=== PATIENT | male | born 1945 | race Caucasian/White ===

== ENCOUNTER 2018-04-19 06:22 | Day surgery (SDC) | payer OTHER ==
[~2018-04-19 06:22] MED LIST: Dextrose 5%-0.45% NaCl 1,000 ML IV SCH; Sodium Chloride 0.9% 10 ML Syringe FLUSH PRN
[2018-04-19] MEDS ORDERED: Midazolam 1 MG/ML 2 ML SDV IV ONE ×7 (06:23→07:43)
[2018-04-19] MEDS ORDERED: fentaNYL 100 MCG/2 ML SDV IV ONE ×3 (06:23→07:34)
[2018-04-19] MEDS ORDERED: Midazolam 1 MG/ML 2 ML SDV ONE (06:48)
[2018-04-19] MEDS ORDERED: fentaNYL 100 MCG/2 ML SDV ONE (06:48)
--- NOTE | 2018-04-19 08:38 | OR ---
DATE: 04/19/2018 PROCEDURES: Total colonoscopy, narrow-band imaging, and multiple cold snare polypectomies. INSTRUMENT USED: CF-H180 AL Olympus video colonoscope, Olympus distal detachable device. PREMEDICATIONS: Fentanyl 100 mcg intravenous, Versed 4 mg intravenous. Nasal O2 cannula. The procedure was done under pulse oximetry, BP recording, and quality assurance monitor chassis. INDICATION: Screening colonoscopic examination is done for detection of any polypoid lesions and removal. Endoscopic hemostasis therapy if needed. DESCRIPTION OF PROCEDURE: Initial perianal exam showed a pigmented skin lesion without bleeding from it. Rectal exam showed external and small internal hemorrhoids. The colonoscope was passed with ease. Numerous scattered diverticula were noted in the distal left colon along with deformity. The scope was passed with ease into the ileocecal area. Photographs were taken of the normal-appearing cecum, identified by landmarks of appendiceal orifice and double-bulged ileocecal folds. No bleeding was noted from any of the visualized areas at the commencement of the examination. There was some amount of fecal material, semisolid in consistency, that had to be aspirated. No stricture. No vascular ectasia. No large isolated ulcerations seen. No evidence of diffuse inflammatory bowel disease in the form of friability, contact bleeding, or ulcerations. Probing the proximal sides of folds and flexures, using adequate distention and clearing up the stool material, withdrawal of the scope was made. In the proximal descending colon, 3-mm sized benign-appearing polyp was noted. Photographs were taken. NBI views were obtained. Cold snare polypectomy was done. The tissue was retrieved and sent for histopathology. In the distal descending colon, just less than 1-cm sized pedunculated benign polyp was noted. NBI views were obtained. Photographs were taken. Cold snare polypectomy was done. The tissue was retrieved and sent for histopathology. No bleeding was noted from any of the visualized areas at the completion of examination. IMPRESSION: 1. External and internal hemorrhoids. 2. Diverticulosis. 3. Multiple colonic polyps. The patient tolerated the procedure well. MODL /[id number]
--- NOTE | 2018-04-19 14:14 | LETTER ---
04/19/2018 Lata Guardado NP [address] [address] RE: BENNIE RAMÍREZ Alina : 1945 Dear Ms. Guardado: Mr. Bennie Ramírez had colonoscopic examination done this morning and he tolerated the procedure well. I herewith send a copy of the endoscopy note and photographs for your review. He just has a skin lesion around the perianal area that requires Dermatology evaluation. Thank you. Sincerely, [facility] /[id number]
== END 2018-04-19 10:05 | disposition home or self-care (01) ==
LOC: DL.ENDO 06:22
PROVIDERS: ATTEND Internal Medicine Gastroenterology
DX: Z12.11 Encounter for screening for malignant neoplasm of colon (principal); D12.4 Benign neoplasm of descending colon; D12.5 Benign neoplasm of sigmoid colon; K57.30 Diverticulosis of large intestine without perforation or abscess without bleeding; K64.4 Residual hemorrhoidal skin tags; K64.8 Other hemorrhoids; I10 Essential (primary) hypertension; F17.210 Nicotine dependence, cigarettes, uncomplicated; E03.9 Hypothyroidism, unspecified; Z88.7 Allergy status to serum and vaccine
CPT/HCPCS: J2250; J3010; J7042

== ENCOUNTER 2020-11-26 10:14 | Emergency (ER) | payer OTHER ==
--- NOTE | 2020-11-26 11:09 | CT ---
PROCEDURE INFORMATION: Exam: CT Head Without Contrast Exam date and time: 11/26/2020 10:57 AM Age: 75 years old Clinical indication: Altered mental status/memory loss; Confusion or disorientation TECHNIQUE: Imaging protocol: Computed tomography of the head without contrast. Radiation optimization: All CT scans at this facility use at least one of these dose optimization techniques: automated exposure control; mA and/or kV adjustment per patient size (includes targeted exams where dose is matched to clinical indication); or iterative reconstruction. Other technique: STROKE PROTOCOL was implemented. COMPARISON: CT Head wo Cont 03/20/2020 1:29 PM FINDINGS: Brain: Again noted is patchy decreased attenuation in the periventricular white matter. Again noted is prominence of the sulci over both convexities. No acute intracranial changes. No hemorrhage or evidence of acute ischemia. No mass or mass effect. Cerebral ventricles: Again noted is mild prominence of the ventricular system secondary to volume loss. The ventricular system is otherwise without acute change. Bones/joints: Unremarkable. No acute fracture. Paranasal sinuses: Visualized sinuses are unremarkable. No fluid levels. Mastoid air cells: Visualized mastoid air cells are well aerated. Vasculature: Again noted is dolichoectasia of the left vertebral and basilar arteries. Soft tissues: Unremarkable. IMPRESSION: 1. No acute intracranial changes. 2. Chronic microvascular disease. 3. Generalized cerebral atrophy. ASSESSMENT: ASPECTS ([place] Stroke Program Early CT Score) is 10.
[2020-11-26 11:13] LABS: ANION GAP 16.5 mEq/L (7-13); CHLORIDE,CL 99 mmol/L (98-107); SODIUM,NA 137 mmol/L (136-145)
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
[2020-11-26] MEDS ORDERED: Iopamidol 612 MG/ML 100 ML Bottle IVPUSH ONE (11:52)
--- NOTE | 2020-11-26 12:30 | CT ---
PROCEDURE INFORMATION: Exam: CT Chest With Contrast; Diagnostic Exam date and time: 11/26/2020 11:32 AM Age: 75 years old Clinical indication: Abdominal pain; Generalized; Chest pain; Type not specified; Additional info: Abd pain, wbc 4.6 TECHNIQUE: Imaging protocol: Diagnostic computed tomography of the chest with contrast. Radiation optimization: All CT scans at this facility use at least one of these dose optimization techniques: automated exposure control; mA and/or kV adjustment per patient size (includes targeted exams where dose is matched to clinical indication); or iterative reconstruction. Contrast material: ISOVUE 300; Contrast volume: 100 ml; Contrast route: INTRAVENOUS (IV); COMPARISON: No relevant prior exams. FINDINGS: Lungs: 4 mm calcified nodule in the right upper lobe. No other pulmonary nodules or masses. No pulmonary infiltrate or consolidation. Mild emphysema. Pleural spaces: Unremarkable. No pneumothorax. No pleural effusion. Heart: Calcification of the coronary arteries. No cardiomegaly. Aorta: Unremarkable. No aortic aneurysm. Lymph nodes: Unremarkable. No enlarged lymph nodes. Bones/joints: Unremarkable. No acute fracture. Soft tissues: Unremarkable. IMPRESSION: 1. No acute cardiopulmonary disease. 2. Mild emphysema. PROCEDURE INFORMATION: Exam: CT Abdomen And Pelvis With Contrast Exam date and time: 11/26/2020 11:32 AM Age: 75 years old Clinical indication: Abdominal pain; Generalized; Chest pain; Type not specified; Additional info: Abd pain, wbc 4.6 TECHNIQUE: Imaging protocol: Computed tomography of the abdomen and pelvis with contrast. Radiation optimization: All CT scans at this facility use at least one of these dose optimization techniques: automated exposure control; mA and/or kV adjustment per patient size (includes targeted exams where dose is matched to clinical indication); or iterative reconstruction. Contrast material: ISOVUE 300; Contrast volume: 100 ml; Contrast route: INTRAVENOUS (IV); COMPARISON: No relevant prior exams. FINDINGS: Liver: Small hypodensities, measuring up to 1.2 cm. They are probably simple cysts. No other acute change or focal lesions. Gallbladder and bile ducts: 1.9 cm stone in the cystic duct. The gallbladder is distended. No other gallstones. Normal bile ducts. Pancreas: Diffuse atrophy. Otherwise, no acute change or focal lesion. Spleen: Normal. No splenomegaly. Adrenal glands: Normal. No mass. Kidneys and ureters: Several small simple right renal cortical cyst. Otherwise, unremarkable. No stones or hydronephrosis. Stomach and bowel: Unremarkable. No obstruction. No mucosal thickening. Appendix: Normal diameter. No inflammation. No evidence for appendicitis. Intraperitoneal space: Unremarkable. No free air. No significant fluid collection. Vasculature: Unremarkable. No abdominal aortic aneurysm. Lymph nodes: Unremarkable. No enlarged lymph nodes. Urinary bladder: Mural thickening. 4.2 cm diverticulum in the left posterolateral aspect. Reproductive: The prostate gland measures 5.6 cm insert transversely. Bones/joints: Moderate degenerative change in the spine. Moderate scoliotic curvature. No fractures. Soft tissues: Unremarkable. IMPRESSION: 1. Stone in the cystic duct of the gallbladder with gallbladder distension may possibly represent cholecystitis. Further evaluation with ultrasound would be helpful if clinical concern exists. 2. Mural thickening of the urinary bladder may represent acute or chronic cystitis. The sequela of chronic bladder outlet obstruction or chronic bladder stasis is possible. 3. Prostatic enlargement. COMMENTS: Consistent with the [employer]'s Incidental Findings Committee white paper (J Am Rony Radiol 2018): Any incidental renal lesion less than 1 cm or classified as too small to characterize, or any incidental cystic renal lesion characterized as simple-appearing, is likely benign. No follow-up imaging is recommended for these lesions per consensus recommendations based on imaging criteria.
[2020-11-26 14:29] LABS: CORONAVIRUS COVID-19 NAA NEGATIVE (NEGATIVE)
== END 2020-11-26 15:00 ==
LOC: DL.ED 10:14
DX: K81.9 Cholecystitis, unspecified (principal); R41.0 Disorientation, unspecified; I10 Essential (primary) hypertension; J44.9 Chronic obstructive pulmonary disease, unspecified; E03.9 Hypothyroidism, unspecified; F17.210 Nicotine dependence, cigarettes, uncomplicated; Z88.7 Allergy status to serum and vaccine; Z79.82 Long term (current) use of aspirin; Z79.899 Other long term (current) drug therapy; Z20.822 Contact with and (suspected) exposure to COVID-19
CPT/HCPCS: 0240U; 36415; 70450; 71260; 74177; 80053; 80305; 80307; 81003; 82962; 84484; 85025; 85610; 93005; 93010; 99285; Q9967

== ENCOUNTER 2021-10-24 14:15 | Emergency (ER) | payer OTHER ==
[2021-10-24] MEDS ORDERED: Ibuprofen Susp 100 MG/5 ML 5 ML UD Cup PO ONE (15:35)
[2021-10-24 15:55] LABS: ANION GAP 15.1 mEq/L (7-13); CHLORIDE,CL 96 mmol/L (98-107); SODIUM,NA 135 mmol/L (136-145)
[2021-10-24 16:21] LABS: AMPHETAMINES,URINE NEGATIVE (NEGATIVE); BARBITURATES,URINE NEGATIVE (NEGATIVE); BENZODIAZEPINE,URINE NEGATIVE (NEGATIVE); MDMA (ECSTASY), URINE NEGATIVE (NEGATIVE); METHADONE,URINE NEGATIVE (NEGATIVE); METHAMPHETAMINES,URINE NEGATIVE (NEGATIVE); OPIATES,URINE NEGATIVE (NEGATIVE); OXYCODONE,URINE NEGATIVE (NEGATIVE); PHENCYCLIDINE,URINE NEGATIVE (NEGATIVE); TCA,URINE NEGATIVE (NEGATIVE)
[2021-10-24 17:46] LABS: CORONAVIRUS COVID-19 NAA NEGATIVE (NEGATIVE)
[2021-10-24] MEDS ORDERED: Iopamidol 612 MG/ML 100 ML Bottle IVPUSH ONE (18:22)
== END 2021-10-24 21:21 | disposition home or self-care (01) ==
LOC: DL.ED 14:15
DX: K59.01 Slow transit constipation (principal); I10 Essential (primary) hypertension; J44.9 Chronic obstructive pulmonary disease, unspecified; E03.9 Hypothyroidism, unspecified; Z86.73 Personal history of transient ischemic attack (TIA), and cerebral infarction without residual deficits; Z88.7 Allergy status to serum and vaccine; Z79.82 Long term (current) use of aspirin; Z79.899 Other long term (current) drug therapy; Z87.891 Personal history of nicotine dependence; Z20.822 Contact with and (suspected) exposure to COVID-19
CPT/HCPCS: 0240U; 36415; 71045; 74177; 80053; 80305; 80307; 81003; 83605; 84484; 85025; 86140; 87040; 99285; A9270; Q9967; 99282